=== PATIENT | male | born 1945 | race Caucasian/White ===

== ENCOUNTER 2021-08-19 12:26 | Outpatient (CLI) | payer MEDICARE | END 2021-08-19 12:27 | disposition home or self-care (01) | LOC: CSHSPEC 12:26 | PROVIDERS: ATTEND Internal Medicine Cardiovascular Disease | DX: R22.42 Localized swelling, mass and lump, left lower limb (principal); Z95.0 Presence of cardiac pacemaker; M71.22 Synovial cyst of popliteal space [Baker], left knee; S83.242A Other tear of medial meniscus, current injury, left knee, initial encounter; M94.262 Chondromalacia, left knee | CPT/HCPCS: 71045; 82565 ==